=== PATIENT | female | born 1995 | race Hispanic/Latino ===

== ENCOUNTER 2016-10-27 12:04 | Emergency (ER) | payer OTHER ==
[~2016-10-27] VITALS: Ht 160 cm; Wt 56.7 kg
[2016-10-27] MEDS ORDERED: LIDOCAINE 1% SDV INJ 30 ML VIAL SC SCH (13:15)
[2016-10-27] MEDS ORDERED: LIDOCAINE 1% MDV 20ML VIAL As Ordered ONE (13:41)
[2016-10-27] MEDS ORDERED: CEPHALEXIN 500 MG CAP PO ONE (14:15)
[2016-10-27] MEDS ORDERED: TETANUS/DIPHTHERIA TOX ADSORB ADULT 0.5ML SYR/VIAL (90714) IM ONE (14:15)
[2016-10-27] MEDS ORDERED: IBUP600T26 PO (14:46)
[2016-10-27 14:50] VITALS: BP 128/80
== END 2016-10-27 15:04 | disposition home or self-care (01) ==
LOC: M ED 13:53
DX: S61.211A Laceration without foreign body of left index finger without damage to nail, initial encounter (principal); W26.0XXA Contact with knife, initial encounter; Y92.000 Kitchen of unspecified non-institutional (private) residence as the place of occurrence of the external cause; Y93.G1 Activity, food preparation and clean up; Y99.8 Other external cause status; Z88.0 Allergy status to penicillin

== ENCOUNTER → 2017-03-01 | Outpatient (REF) | payer OTHER ==
[~2017-03-01] MED LIST: IBUP-1022 PO
== END ==
LOC: M LAB REF 09:01
PROVIDERS: ATTEND Physician Assistant
DX: L98.9 Disorder of the skin and subcutaneous tissue, unspecified (principal)